=== PATIENT | female | born 2000 | race Caucasian/White ===

== ENCOUNTER 2019-04-21 13:16 | Emergency (ER) | payer OTHER ==
[~2019-04-21] VITALS: Ht 152.4 cm; Wt 100.0 kg
[2019-04-21 15:00] VITALS: BP 110/67
== END 2019-04-21 15:00 | disposition home or self-care (01) | DRG 552 ==
LOC: ED 13:16
DX: M54.5 Low back pain (principal); V43.62XA Car passenger injured in collision with other type car in traffic accident, initial encounter